=== PATIENT | male | born 1950 | race Caucasian/White ===

== ENCOUNTER → 2018-06-26 | Outpatient (CLI) | payer OTHER ==
[2018-06-20 12:31] VITALS: BP 167/78
--- NOTE | 2018-06-26 12:19 | PAIN ---
DATE OF SERVICE: 06/26/2018 INITIAL CONSULTATION FOR PAIN CLINIC CHIEF COMPLAINT: Right upper back pain. HISTORY OF PRESENT ILLNESS: This is a 68-year-old male who presents with history of pain starting on 06/14/2018. 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 The patient reports it stabbing pain with lancing at the times, is becoming more low usually with time and exercise but it is still sharp, stabbing, shooting and intermittent in intensity pain, worse with using his right upper extremity, bending or flexing especially standing from sitting position, which is getting better but still significantly painful. The patient reports it is better with time. He has not had any formal physical therapies or other treatments. We did have MRI scans performed both thoracic and lumbar spines per the patient, showing degenerative changes throughout the thoracic disk spaces but did not result in any significant central spinal or neural foraminal stenosis. Lumbar shows significant degenerative changes as well throughout the lumbar spaces with some spinal canal stenosis at L2-L3, [id number]-[id number] central stenosis at L3-L4, moderate central stenosis at L4-L5 and mild central stenosis at L5-S1. The patient reports again better with time. Reports his disability rate from 0-10, 10 being the worst, as a 1 in all categories, family home responsibilities, recreation, social activity, occupation, sexual behavior, life support activities and self-care. The patient is taking Aleve medication, which does seem to help. He is not on any formal therapies for it over the past 2 weeks as well. The patient reports it does not awaken him from sleep at night, does not affect his ability to walk or get around now that it is getting better, originally very painful standing from a sitting position. The patient reports no radiation to the upper extremities. No loss of motor function or weakness. PAST MEDICAL HISTORY: Significant for no previous surgeries. Only some occasional back pain now and the patient wears glasses, otherwise has been in very good health. No significant conditions. CURRENT MEDICATIONS: Include only [id number] Aleve, no prescription medications. ALLERGIES: The patient has no known drug allergies. FAMILY HISTORY: Significant for no major medical problems or conditions he is aware of. SOCIAL HISTORY: The patient does not drink alcohol, does not smoke, is and lives with his spouse, lives in [place], [place]. 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 REVIEW OF SYSTEMS: The patient's review of systems is positive for those items mentioned in history of present illness. All systems reviewed and otherwise negative. It is complete, full and well documented on the patient's chart. PHYSICAL EXAMINATION: VITAL SIGNS: The patient's blood pressure is 141/68, pulse is 72, respirations 16, temperature is 98.0 degrees Fahrenheit, height is 6 feet 4 inches and weight is 304 pounds. GENERAL: The patient is awake, alert, oriented, appropriate and very pleasant demeanor. HEENT: Head shows normocephalic and atraumatic. Extraocular movements are intact and symmetrical. Oral cavity: Mucous membranes moist and pink. Dentition is intact. NECK: Shows anterior throat supple without palpable lymphadenopathy noted. Swallow reflex is symmetrical. CHEST: Shows normal on inspection. Breath sounds clear to auscultation bilaterally. HEART: Shows S1 and S2 clear. No murmurs auscultated. ABDOMEN: Obese, soft, nontender and nondistended. No palpable organomegaly is noted. No rebound or guarding demonstrated. BACK: Shows spine grossly in the midline. Normal appearing thoracic kyphosis and lumbar lordotic curvature. The patient's lumbar paraspinous musculature shows symmetrical. The right rhomboid musculature has very firm area of tenderness, which is only moderately tender but very firm consistent with a trigger point area of musculature on the right side and approximately the superior to the mid trapezius and rhomboid distribution on the right side only and symmetrical and left side is supple without tenderness. Again, no atrophy, hypertrophy or asymmetry noted. The patient has good rotational motion of the cervical spine, both laterally as well as extension and flexion. EXTREMITIES: Upper extremities show deep tendon reflexes 2+ in the biceps and triceps tendons are equal. Motor exam is strong with 5/5 acid concentrator strength, bicep and tricep flexion. Shoulder shrug is strong and intact without loss of strength and resistance as well. The patient shows good rotational motion of the scapula, right and left without significant restriction. IMPRESSION: This is a 68-year-old male with approximate 2-week history of acute upper thoracic sprain/strain, improving with time, still with some area of muscular pain and induration, right rhomboid and trapezius. PLAN: Options were discussed with the patient including conservative medical management, physical therapy, interventional techniques and he would like to continue with conservative medical managements and therapies. We discussed heat and massage treatment and stretching techniques. We discussed with him and his spouse today to get the pain reduced. We will clear him to go back to work in approximately 6 days as he would like to get back to work and feels that he is improving significantly. We suggested heat and massage therapies as well as pressure massage. If not significantly improved, we did discuss a possible trigger point injections but we will save these for another time if he is having a significant pain after the more conservative treatments. The patient will return to the clinic in approximately 2 weeks and we will update his return to work and activities and tolerance as pain level at that time. ZARA OJEDA MD DR: JANES/reyna JOB#: [id number] / [id number]
== END | disposition home or self-care (01) ==
LOC: PNCL 07:47
PROVIDERS: ATTEND Anesthesiology
DX: S23.3XXD Sprain of ligaments of thoracic spine, subsequent encounter (principal); Z90.89 Acquired absence of other organs; X58.XXXD Exposure to other specified factors, subsequent encounter
CPT/HCPCS: 99214

== ENCOUNTER 2019-09-27 12:20 | Emergency (ER) | payer OTHER ==
[~2019-09-27] VITALS: Ht 193 cm; Wt 127.0 kg
[2019-09-27 12:50] VITALS: BP 163/78
--- NOTE | 2019-09-27 13:18 | PHYS DOC ---
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 He states that his blood pressure upstairs and was 170/86. States they sent him down stairs to be checked out. Upon examination patient's blood pressure is 157/81, heart rate 71 99% on room air. Review of Systems Review of Systems Cardiovascular: Hypertension All other systems were reviewed and found to be within normal limits, except as documented in this note. Allergies Allergies Allergies Coded Allergies Type Severity Reaction Last Updated Verified No Known Drug Allergies 02/21/14 No Physical Exam Physical Exam Constitutional: Well developed, well nourished, no acute distress, non-toxic appearance. [] HENT: Normocephalic, atraumatic, bilateral external ears normal, oropharynx moist, no oral exudates, nose normal. [] Eyes: PERRLA, EOMI, conjunctiva normal, no discharge. [] Neck: Normal range of motion, no tenderness, supple, no stridor. [] Cardiovascular:Heart rate regular rhythm, no murmur [] Lungs & Thorax: Bilateral breath sounds clear to auscultation [] Abdomen: Bowel sounds normal, soft, no tenderness, no masses, no pulsatile masses. [] Skin: Warm, dry, no erythema, no rash. [] Back: No tenderness, no CVA tenderness. [] Extremities: No tenderness, no cyanosis, no clubbing, ROM intact, no edema. [] Neurologic: Alert and oriented X 3, normal motor function, normal sensory function, no focal deficits noted. [] Psychologic: Affect normal, judgement normal, mood normal. Normal physical exam[] Current Patient Data Vital Signs Vital Signs Date Time Temp Pulse Resp B/P (MAP) Pulse Ox O2 Delivery O2 Flow Rate FiO2 09/27/19 12:50 97.9 75 20 163/78 (106) 97 Room Air 97.9 EKG EKG [] Radiology/Procedures Radiology/Procedures [] Course & Med Decision Making Course & Med Decision Making Patient states he has been keeping track of his blood pressures at home and at times it is 210 over 100s. Patient denies headaches, dizziness, chest pain, shortness of air, numbness or tingling, visual changes, abdominal pain, nausea, vomiting ,weaknesses. Alert and oriented. Ambulatory with steady gait. Skin pink warm and dry. Conjunctiva white. PERRLA. Lungs are clear to auscultation lobes. No extremity edema. Patient is told that this time he is stable and educated on symptoms to look for. Patient is told to get in with his primary care doctor soon as possible. Patient denies any other medical history. Dragon Disclaimer Dragon Disclaimer This electronic medical record was generated, in whole or in part, using a voice recognition dictation system. Departure Departure Impression: Primary Impression: Encounter for medical screening examination Disposition: HOME, SELF-CARE Condition: STABLE Referrals: NO PCP (PCP) Patient Instructions: Medical Screening Exam Additional Instructions: Follow up with primary care provider. PASQUALE THIBODEAUX APRN Sep 27, 2019 13:18
== END 2019-09-27 13:25 | disposition home or self-care (01) ==
LOC: ER 12:20
DX: I10 Essential (primary) hypertension (principal); Z90.89 Acquired absence of other organs; Z98.890 Other specified postprocedural states
CPT/HCPCS: 99281

== ENCOUNTER → 2019-10-25 | Outpatient (CLI) | payer OTHER ==
[2019-09-27 12:50] VITALS: BP 163/78
[2019-10-25 07:58] LABS: BASO % 1 % (0-3); EOS # 0.1 x10^3/uL (0.0-0.7); EOS % 3 % (0-3); HEMATOCRIT 42.9 % (39.0-53.0); HEMOGLOBIN 14.2 g/dL (13.0-17.5); LYMPH # 1.7 x10^3/uL (1.0-4.8); LYMPH % 38 % (24-48); MEAN CORPUSCULAR HEMOGLOBIN 32 pg (25-35); MEAN CORPUSCULAR HGB CONC 33 g/dL (31-37); MEAN CORPUSCULAR VOLUME 95 fL (79-100); MONO # 0.6 x10^3/uL (0.0-1.1); MONO % 14 % (0-9); NEUT % 45 % (31-73); PLATELET COUNT 201 x10^3/uL (140-400); RED BLOOD COUNT 4.51 x10^6/uL (4.30-5.70); WHITE BLOOD COUNT 4.5 x10^3/uL (4.0-11.0)
[2019-10-25 08:33] LABS: ALBUMIN 3.9 g/dL (3.4-5.0); ALBUMIN/GLOBULIN RATIO 1.2 (1.0-1.7); CALCIUM 8.6 mg/dL (8.5-10.1); CHOLESTEROL/HDL RATIO 5.8; CREATININE 1.1 mg/dL (0.7-1.3); GFR 66.6; POTASSIUM 4.1 mmol/L (3.5-5.1); TOTAL BILIRUBIN 0.6 mg/dL (0.2-1.0); TOTAL PROTEIN 7.2 g/dL (6.4-8.2)
[2019-10-25 08:37] LABS: THYROID STIM HORMONE (TSH) 3.629 uIU/mL (0.358-3.74)
== END | disposition home or self-care (01) ==
LOC: LAB 07:36
PROVIDERS: ATTEND Family Medicine
DX: Z13.220 Encounter for screening for lipoid disorders (principal); I10 Essential (primary) hypertension
CPT/HCPCS: 36415; 80053; 80061; 84439; 84443; 85025

== ENCOUNTER → 2020-09-01 | Outpatient (CLI) | payer MEDICARE ==
[2020-08-08 14:17] VITALS: BP 127/67
[~2020-09-01] MED LIST: AMLO-187 PO; ASPI325T11 PO; ATOR40TA59 PO; LISI-130 PO
--- NOTE | 2020-09-01 17:13 | KCIC ---
Ultrasound of the thyroid gland dated 09/01/2020 CLINICAL HISTORY: Multinodular goiter seen on CTA of the neck. TECHNIQUE: A real-time ultrasound examination of the thyroid gland was performed. Multiple images were obtained. FINDINGS: Comparison is made to the patient's CTA of the neck dated 08/07/2020. The thyroid gland is mildly enlarged. The right lobe of thyroid gland measures 4.0 x 2.7 x 1.7 cm in longitudinal, transverse, and AP dimensions. The left lobe of thyroid gland measures 4.9 x 2.2 x 1.9 cm in size. The isthmus of the thyroid gland measures 3 mm in thickness which is within normal limits. Within the right lobe of the thyroid gland an oval-shaped well-defined predominantly hyperechoic solid nodule is seen. This measures 1.3 cm in greatest diameter. Its ultrasound appearance is consistent with a TI-RADS category 3 nodule (mildly suspicious). Two mildly hypoechoic well-defined oval-shaped nodules are seen within the left lobe of thyroid gland which measure 1.1 and 1.0 cm in size are seen. Their ultrasound appearance is consistent with TI-RADS category 4 nodules (moderately suspicious). Due to the relative small size of these nodules a follow-up thyroid ultrasound in 6 months is recommended to document their stability. No additional abnormality of the thyroid gland is seen. IMPRESSION: Findings are seen consistent with a multinodular goiter. Three nodules are seen within the thyroid gland which measure 1 to 1.3 cm in size. A follow-up ultrasound of the thyroid gland in 6 months is recommended to document their stability as discussed above. Electronically signed by: Andreas Herron MD (09/01/2020 5:10 PM) [place] [id number]
== END ==
LOC: KCIC US 09:53
PROVIDERS: ATTEND Family Medicine
DX: E04.2 Nontoxic multinodular goiter (principal)
CPT/HCPCS: 76536

== ENCOUNTER → 2020-09-29 | Outpatient (CLI) | payer MEDICARE ==
[2020-08-08 14:17] VITALS: BP 127/67
--- NOTE | 2020-09-29 16:17 | CARD ---
MR#: [id number] Date of Study: 09/29/2020 Ordering Physician: ELIZABETH MELÉNDEZ, Referring Physician: ELIZABETH MELÉNDEZ, Tech: Khushboo Reed [facility] APPROVED REPORT EXAM: Two-dimensional and M-mode echocardiogram with Doppler and color Doppler. Other Information Quality : Good Rhythm : PVC's INDICATION CVA/TIA Echo Enhancing Agent Agent/Amount Used: Agitated Saline 8mL 2D DIMENSIONS RVDd3.4 (2.9-3.5cm)Left Atrium(2D)4.6 (1.6-4.0cm) IVSd1.1 (0.7-1.1cm)Aortic Root(2D)3.6 (2.0-3.7cm) LVDd6.0 (3.9-5.9cm)LVOT Diameter2.7 (1.8-2.4cm) PWd1.1 (0.7-1.1cm)LVDs4.5 (2.5-4.0cm) FS (%) 24.9 %SV86.8 ml Aortic Valve AoV Peak Marbin.129.7cm/sAoV VTI24.6cm AO Peak GR.6.7mmHgLVOT Peak Marbin.101.3cm/s AO Mean GR.3mmHgAVA (VMAX)4.41cm2 AI P 1/2 [id number] Mitral Valve MV E Vvlfhzxi66.8cm/sMV DECEL [id number] MV A Moworfxw51.2cm/sE/A Ratio0.6 Pulmonary Vein S1 Bqerbsmf72.5cm/sD2 Gqsvwzag69.6cm/s LEFT VENTRICLE The Left Ventricle is borderline dilated. There is normal left ventricular wall thickness. Left ventr icle systolic function is low normal. The Ejection Fraction is estimated at 50%. There is normal LV s egmental wall motion. Transmitral Doppler flow pattern is Grade I-abnormal relaxation pattern. RIGHT VENTRICLE The right ventricle is normal size. The right ventricular systolic function is normal. ATRIA The left atrium is mildly dilated. The right atrium size is normal. The interatrial septum is intact with no evidence for an atrial septal defect or patent foramen ovale as noted on 2-D or Doppler imagi ng. Injection of bubbles documented no interatrial shunt. AORTIC VALVE The aortic valve is calcified but opens well. Doppler and Color Flow revealed mild to moderate eccent елена aortic regurgitation. There is no significant aortic valvular stenosis. MITRAL VALVE The mitral valve is calcified but opens well. Mitral annular calcification is mild. There is no evide nce of mitral valve prolapse. There is no mitral valve stenosis. Doppler and Color-flow revealed trac e to mild mitral regurgitation. TRICUSPID VALVE The tricuspid valve is normal in structure and function. Doppler and Color Flow revealed no tricuspid valve regurgitation noted. There is no tricuspid valve stenosis. PULMONIC VALVE The pulmonic valve is not well visualized. Doppler and Color Flow revealed trace pulmonic valvular re gurgitation. There is no pulmonic valvular stenosis. GREAT VESSELS The aortic root is normal in size. The ascending aorta is moderately dilated at 4.4 cm. The IVC is no rmal in size and collapses >50% with inspiration. PERICARDIAL EFFUSION There is no evidence of significant pericardial effusion. Critical Notification Critical Value: No <Conclusion> The Left Ventricle is borderline dilated. Left ventricle systolic function is low normal. The Ejection Fraction is estimated at 50%. The interatrial septum is intact with no evidence for an atrial septal defect or patent foramen ovale as noted on 2-D or Doppler imaging. Injection of bubbles documented no interatrial shunt. Doppler and Color Flow revealed mild to moderate eccentric aortic regurgitation. There is no significant aortic valvular stenosis. Doppler and Color-flow revealed trace to mild mitral regurgitation. Doppler and Color Flow revealed no tricuspid valve regurgitation noted. The ascending aorta is moderately dilated at 4.4 cm. Signed by : Kiran Pan MD Electronically Approved : 09/29/2020 16:16:53
== END ==
LOC: ECHO 12:40
PROVIDERS: ATTEND Internal Medicine Cardiovascular Disease
DX: I08.0 Rheumatic disorders of both mitral and aortic valves (principal); I63.9 Cerebral infarction, unspecified
CPT/HCPCS: 93306

== ENCOUNTER → 2021-01-07 | Outpatient (CLI) | payer MEDICARE ==
[2020-08-08 14:17] VITALS: BP 127/67
--- NOTE | 2021-01-07 16:02 | CARD ---
MR#: [id number] Date of Study: 01/07/2021 Ordering Physician: ELIZABETH MELÉNDEZ, Referring Physician: ELIZABETH MELÉNDEZ, Tech: Regina Nelson [facility] APPROVED REPORT INDICATION Arrhythmia Reason : Patient complained of shortness of breath STRESS ECHO FINDINGS The resting Echocardiogram showed normal left ventricular systolic contractility with an estimated Ej ection Fraction of about 55 %. The Stress Echocardiogram showed normal augmentation of myocardial wall segments using a 16 segment m tammy. The Stress Echocardiogram left ventricular systolic contractility has an estimated Ejection Fraction of about 75%. Test Type: Exercise Stress Nurse/Tech: Elizabeth Castro R.N. Test Indications: shortness of breath Cardiac History and Allergies: htn, hlp, tia Medications: see ehr Medical History: see ehr Resting ECG: SR with unifocal freq PVCs Resting Heart Rate: 92 bpm Resting Blood Pressure: 96/64mmHg Pretest Chest Pain: No chest pain Nurse/Tech Notes lungs cta, heart tones irregular Stress Symptoms No chest pain or symptoms.Dyspnea POST EXERCISE Reason for Termination: Reached target heart rate Target HR: Yes Max HR: 160 bpm 106% of Maximum Predicted HR: 151 bpm Exercise duration: 3:32 min:sec, 2 Stage Exercise capacity: 4.6METs Max Blood Pressure: 193/84mmHg Chest Pain: No. Arrhythmia: Yes. Pt had episodes of bigeminy in recovery ST Change: No. INTERPRETATION Stress EKG Conclusion: Baseline EKG showed sinus rhythm with PVCs. No diagnostic changes of ischemia at peak stress. Patient had PVCs/bigeminy in recovery. <Conclusion> Treadmill exercise stress echocardiogram did not show any evidence of ischemia or infarct. Of note patient had PVC's and bigeminy during recovery. Normal left ventricle systolic function with ejection fraction estimated at 55%. Patient had poor activity tolerance. Signed by : Ehsan Hinson, Electronically Approved : 01/07/2021 16:02:07
== END ==
LOC: ECHO 12:40
PROVIDERS: ATTEND Internal Medicine Cardiovascular Disease
DX: I71.2 Thoracic aortic aneurysm, without rupture (principal)
CPT/HCPCS: 93017; 93350

== ENCOUNTER → 2021-05-26 | Outpatient (CLI) | payer MEDICARE ==
[2020-08-08 14:17] VITALS: BP 127/67
--- NOTE | 2021-05-26 17:04 | CARD ---
MR#: [id number] Date of Study: 05/26/2021 Ordering Physician: ELIZABETH MELÉNDEZ, Referring Physician: ELIZABETH MELÉNDEZ, Tech: Regina Nelson [facility] APPROVED REPORT EXAM: Two-dimensional and M-mode echocardiogram with Doppler and color Doppler. Other Information Quality : AverageHR: 67bpm Rhythm : NSR INDICATION Aortic Valve Disease RISK FACTORS Hypertension Obesity 2D DIMENSIONS RVDd4.4 (2.9-3.5cm)Left Atrium(2D)4.6 (1.6-4.0cm) IVSd1.1 (0.7-1.1cm)Aortic Root(2D)4.5 (2.0-3.7cm) LVDd7.0 (3.9-5.9cm)LVOT Diameter2.8 (1.8-2.4cm) PWd1.2 (0.7-1.1cm)LVDs4.6 (2.5-4.0cm) FS (%) 34.7 %SV158.7 ml LVEF(%)62.4 (>50%) Aortic Valve AoV Peak Marbin.172.2cm/sAoV VTI37.6cm AO Peak GR.11.9mmHgLVOT Peak Marbin.99.9cm/s AO Mean GR.5mmHgAVA (VMAX)3.49cm2 AI P 1/2 Dryk317ts Mitral Valve MV E Zmizgvqs64.6cm/sMV DECEL [id number] MV A Acnihypx18.5cm/sE/A Ratio1.1 Pulmonary Valve PV Peak Tnmbokwz82.3cm/s Tricuspid Valve TR P. Lwemumuv329wz/sTR Peak Gr.17mmHg LEFT VENTRICLE The left ventricle is normal size. There is borderline to mild concentric left ventricular hypertroph y. The left ventricular sytolic function is normal. stimated ejection fraction 50-55%. There is norm al LV segmental wall motion. Transmitral Doppler flow pattern is Grade II-pseudonormal filling dynami cs. RIGHT VENTRICLE The right ventricle is normal size. There is normal right ventricular wall thickness. The right ventr icular systolic function is normal. ATRIA The left atrium size is normal. The right atrium size is normal. The interatrial septum is intact wit h no evidence for an atrial septal defect or patent foramen ovale as noted on 2-D or Doppler imaging. AORTIC VALVE The aortic valve is normal in structure and function. Doppler and Color Flow revealed mild to moderat e aortic regurgitation. There is no significant aortic valvular stenosis. MITRAL VALVE The mitral valve is normal in structure and function. There is no evidence of mitral valve prolapse. There is no mitral valve stenosis. Doppler and Color-flow revealed mild mitral regurgitation. TRICUSPID VALVE The tricuspid valve is normal in structure and function. Doppler and Color Flow revealed trace tricus pid regurgitation. Estimated PAP 20 mmHg. There is no tricuspid valve stenosis. PULMONIC VALVE The pulmonary valve is normal in structure and function. Doppler and Color Flow revealed no pulmonic valvular regurgitation. GREAT VESSELS The aortic root is moderately enlarged. The ascending aorta is Moderately dilated. The IVC is normal in size and collapses >50% with inspiration. PERICARDIAL EFFUSION There is no evidence of significant pericardial effusion. Critical Notification Critical Value: No <Conclusion> The left ventricular sytolic function is normal. stimated ejection fraction 50-55%. There is normal LV segmental wall motion. Transmitral Doppler flow pattern is Grade II-pseudonormal filling dynamics. Mild to moderate aortic regurgitation. Mild mitral regurgitation. Trace tricuspid regurgitation. Estimated PAP 20 mmHg. The ascending aorta is moderately dilated. There is no evidence of significant pericardial effusion. Signed by : Ehsan Hinson, Electronically Approved : 05/26/2021 17:04:30
== END ==
LOC: ECHO 08:58
PROVIDERS: ATTEND Internal Medicine Cardiovascular Disease
DX: I08.0 Rheumatic disorders of both mitral and aortic valves (principal); I71.2 Thoracic aortic aneurysm, without rupture
CPT/HCPCS: 93306

== ENCOUNTER → 2021-08-27 | Outpatient (CLI) | payer MEDICARE ==
[2020-08-08 14:17] VITALS: BP 127/67
[~2021-08-27] MED LIST changes: +IOHEXOL 300 MG/ML 100ML VIAL. IV ONE
--- NOTE | 2021-08-27 11:13 | KCIC ---
Examination: CT angiography chest with IV contrast HISTORY: History of ascending aorta dilatation COMPARISON: None available Technique: Axial CT angiographic images of chest were performed with IV contrast. Coronal and sagitta l 3-D MIP reformats are performed Exposure: One or more of the following individualized dose reduction techniques were utilized for thi s examination: 1. Automated exposure control 2. Adjustment of the mA and/or kV according to patient size 3. Use of iterative reconstruction technique FINDINGS: The visualized thyroid gland demonstrates a 1.4 cm hypodense nodule left lobe of thyroid gland. There is 8 mm hypodense nodule identified in the right lobe of thyroid gland. The heart size grossly appea rs unremarkable. Coronary artery calcifications identified. The ascending aorta measures 4.4 cm in tr ansverse dimension. No evidence of aortic dissection Mild bibasilar lung atelectasis. Diffuse evaluation of the liver likely hepatic steatosis. There are few subcentimeter cystic structures identified in the liver, difficult to compress could be cysts or cystic lesions. The spleen, adrenals grossly appears unremarkable.Moderate degenerative changes thora cic spine. IMPRESSION: 1. Mild aneurysmal change ascending aorta, measuring 4.4 cm. 2. Coronary artery calcifications. 3. Hepatic steatosis. 4. Few subcentimeter cystic structures identified in the liver, difficult to compress could be cysts or cystic lesions. Follow-up ultrasound or MRI can be considered. 5. Bilateral thyroid nodules. Electronically signed by: Chay Harris MD (08/27/2021 11:11 AM) [place] [id number]
== END ==
LOC: KCIC CT 09:12
PROVIDERS: ATTEND Internal Medicine Cardiovascular Disease
DX: I71.2 Thoracic aortic aneurysm, without rupture (principal); K76.0 Fatty (change of) liver, not elsewhere classified; J98.11 Atelectasis; I25.10 Atherosclerotic heart disease of native coronary artery without angina pectoris; E04.2 Nontoxic multinodular goiter
CPT/HCPCS: 71275; Q9967